=== PATIENT | male | born 2000 | race Two or more races ===

== ENCOUNTER 2019-06-05 15:54 | Emergency (ER) | payer MEDICAID ==
[~2019-06-05] VITALS: Ht 170.2 cm; Wt 108.9 kg
[2019-06-05 16:30] LABS: Basophils # (auto) 0.1 uL; Basophils % (auto) 0.6 % (0.0-2.0); Eosinophils # (auto) 0.9 uL; Eosinophils % (auto) 5.7 % (0.0-7.0); Hematocrit 46.5 % (41.0-53.0); Lymphocytes # (auto) 4.9 uL; Lymphocytes % (auto) 32.6 % (10.0-50.0); Mean Corpuscular Hemoglobin 28.6 pg (28.0-32.0); Mean Corpuscular Hgb Conc. 34.5 g/dL (32.0-36.0); Mean Corpuscular Volume 82.8 fL (80.0-100.0); Monocytes # (auto) 0.8 uL; Neutrophils # (auto) 8.5 uL; Neutrophils % (auto) 56.1 % (37.0-80.0); Platelet Count (auto) 407 10^3/uL (140-450); Red Blood Cells 5.61 10^6/uL (4.5-5.90); Red Cell Distribution Width 13.8 % (11.8-14.3); White Blood Cell 15.1 10^3/uL (4.4-10.8)
[2019-06-05 20:06] VITALS: BP 145/88
== END 2019-06-05 21:35 | disposition home or self-care (01) ==
LOC: ER 15:58
DX: R04.0 Epistaxis (principal); E86.0 Dehydration; N39.0 Urinary tract infection, site not specified; R03.0 Elevated blood-pressure reading, without diagnosis of hypertension
CPT/HCPCS: 36415; 81002; 82962; 85025

== ENCOUNTER 2020-04-28 11:05 | Emergency (ER) | payer OTHER, MEDICAID ==
[~2020-04-28] VITALS: Ht 172.7 cm; Wt 104.3 kg
[2020-04-28 12:00] VITALS: BP 156/103
== END 2020-04-28 12:58 | disposition home or self-care (01) ==
LOC: ER 11:05
DX: M25.512 Pain in left shoulder (principal); M54.2 Cervicalgia; V89.2XXA Person injured in unspecified motor-vehicle accident, traffic, initial encounter; Y93.I9 Activity, other involving external motion; Y92.481 Parking lot as the place of occurrence of the external cause; Y99.8 Other external cause status
CPT/HCPCS: 72040; 73030

== ENCOUNTER 2022-04-10 09:51 | Inpatient (IN) | payer OTHER, MEDICAID ==
[~2022-04-10] VITALS: Ht 175.3 cm; Wt 86.7 kg
[2022-04-10] MEDS ORDERED: ALUM & MAG HYDROX-SIMETH LIQ(MAALOX) 30 ML PO ONE (10:30)
[2022-04-10 10:40] LABS: Red Cell Distribution Width 13.2 % (11.8-14.3)
[2022-04-10 10:42] LABS: Hematocrit 43.6 % (41.0-53.0); Hemoglobin 14.9 g/dL (13.5-17.5); Mean Corpuscular Hemoglobin 28.3 pg (28.0-32.0); Mean Corpuscular Hgb Conc. 34.3 g/dL (32.0-36.0); Mean Corpuscular Volume 82.6 fL (80.0-100.0); Red Blood Cells 5.27 10^6/uL (4.5-5.90); White Blood Cell 27.1 10^3/uL (4.4-10.8)
[2022-04-10 10:55] LABS: Basophils % (manual) 0 (0.0-2.0); Blast Cells 0; Metamyelocytes % 0; Myelocytes % 0; Promyelocytes % 0; Reactive Lymphocytes 0
[2022-04-10] MEDS ORDERED: SODIUM CHLORIDE 0.9% 1,000 ML IV ONE (11:00)
[2022-04-10 11:01] LABS: Albumin 2.7 g/dL (3.4-5.0); BUN/Creatinine Ratio 16.5; Calcium 8.6 mg/dL (8.5-10.1)
[2022-04-10 11:04] LABS: Bilirubin, Total 0.8 mg/dL (0.2-1.0); Total Protein 8.6 g/dL (6.4-8.2)
[2022-04-10 12:50] LABS: Amphetamine Screen, Urine NEGATIVE (NEGATIVE); Barbiturate Scree,Urine NEGATIVE (NEGATIVE); Benzodiazephine Screen, Urine NEGATIVE (NEGATIVE); Cannabinoid Screen, Urine NEGATIVE (NEGATIVE); Cocaine Screen, Urine NEGATIVE (NEGATIVE); Opiate Scree,Urine NEGATIVE (NEGATIVE); Phencyclidine Screen, Urine NEGATIVE (NEGATIVE)
[2022-04-10 12:56] LABS: Urine Bacteria NONE SEEN /hpf (None Seen); Urine Blood Negative /uL (Negative); Urine Hyaline Cast FEW /lpf (0 - 2); Urine Specific Gravity 1.016 (1.001-1.035); Urine WBC 5 /hpf (0 - 3)
[2022-04-10 13:02] LABS: Band Neutrophils % (manual) 22; Eosinophils % (manual) 1 (0-7); Lymphocytes % (manual) 9 (10.0-50.0); Monocytes % (manual) 11 (0-12)
[2022-04-10] MEDS ORDERED: ACETAMINOPHEN 325 MG TAB PO PRN (23:15)
[2022-04-10] MEDS ORDERED: TEMAZEPAM 15 MG CAP PO PRN (23:15)
[2022-04-10] MEDS ORDERED: NITROGLYCERIN 0.4 MG SL TAB SL PRN (23:15)
[2022-04-10] MEDS ORDERED: MORPHINE SULFATE INJ 2 MG/ml SYRG IV PRN (23:15)
[2022-04-10] MEDS ORDERED: cefTRIAXone 1GM/50ML D5W 50 ML IV ONE (23:15)
[2022-04-10] MEDS ORDERED: metroNIDAZOLE 500MG/100ML 100 ML IV ONE (23:15)
[2022-04-10] MEDS ORDERED: ALBUMIN 25% 100 ML IV ONE (23:15)
[2022-04-11] VITALS (7 sets, daily range): BP systolic 121–131; BP diastolic 55–74
[2022-04-11] MEDS: POTASSIUM CHL 20MEQ/100ML 100 ML IV SCH ×2 (00:23→01:15)
[2022-04-11] MEDS: SODIUM CHLORIDE 0.9% 1,000 ML IV SCH ×2 (00:24→15:55)
[2022-04-11] MEDS: metroNIDAZOLE 500MG/100ML 100 ML IV SCH ×3 (05:35→21:19)
[2022-04-11 07:06] LABS: Hematocrit 39.1 % (41.0-53.0); Hemoglobin 13.5 g/dL (13.5-17.5); Mean Corpuscular Hemoglobin 28.6 pg (28.0-32.0); Mean Corpuscular Hgb Conc. 34.6 g/dL (32.0-36.0); Mean Corpuscular Volume 82.7 fL (80.0-100.0); Red Blood Cells 4.72 10^6/uL (4.5-5.90); Red Cell Distribution Width 13.5 % (11.8-14.3); White Blood Cell 23.8 10^3/uL (4.4-10.8)
[2022-04-11 07:15] LABS: Basophils % (manual) 0 (0.0-2.0); Blast Cells 0; Promyelocytes % 0; Reactive Lymphocytes 0
[2022-04-11 07:17] LABS: Albumin 2.6 g/dL (3.4-5.0); Calcium 8.5 mg/dL (8.5-10.1); Potassium 3.4 mmol/L (3.5-5.1)
[2022-04-11 07:23] LABS: BUN/Creatinine Ratio 21.8; Bilirubin, Total 0.8 mg/dL (0.2-1.0); Total Protein 7.5 g/dL (6.4-8.2)
[2022-04-11 07:48] LABS: Band Neutrophils % (manual) 12; Eosinophils % (manual) 5 (0-7); Lymphocytes % (manual) 9 (10.0-50.0); Metamyelocytes % 1; Monocytes % (manual) 5 (0-12); Myelocytes % 2
[2022-04-11] MEDS: ENOXAPARIN SOD 40 MG/0.4 ML SYRINGE SC SCH (10:00)
[2022-04-11] MEDS: FAMOTIDINE (10MG/ML) 2ML VL IV SCH ×2 (10:13→22:22)
[2022-04-11] MEDS: HYDROcodone-ACET 5/325MG TAB PO PRN (10:30)
[2022-04-11] MEDS ORDERED: POTASSIUM CHLORIDE 20 MEQ, LIDOCAINE 1% (LOCAL ANESTH.) 2 ML in SODIUM CHL 0.9% 100 ML IV ONE (11:00)
[2022-04-11] MEDS: ONDANSETRON HCL 4 MG/2 ML VIAL IV PRN (11:05)
[2022-04-11] MEDS: MORPHINE SULFATE INJ 2 MG/ml SYRG IV PRN (11:06)
[2022-04-11] MEDS ORDERED: VANCOMYCIN HCL 125MG/5ML ORAL SOL PO ONE (12:00)
[2022-04-11] MEDS: VANCOMYCIN HCL 125MG/5ML ORAL SOL PO SCH (17:04)
[2022-04-11] MEDS: cefTRIAXone 1GM/50ML D5W 50 ML IV SCH (22:22)
[2022-04-12] MEDS: VANCOMYCIN HCL 125MG/5ML ORAL SOL PO SCH ×4 (00:28→18:12)
[2022-04-12 05:00] VITALS: BP 116/66
[2022-04-12] MEDS: metroNIDAZOLE 500MG/100ML 100 ML IV SCH ×3 (06:21→21:16)
[2022-04-12 09:02] VITALS: BP 129/75
[2022-04-12] MEDS: FAMOTIDINE (10MG/ML) 2ML VL IV SCH ×2 (09:52→22:31)
[2022-04-12] MEDS: ENOXAPARIN SOD 40 MG/0.4 ML SYRINGE SC SCH (09:57)
[2022-04-12 13:19] VITALS: BP 124/67
[2022-04-12] MEDS: SODIUM CHLORIDE 0.9% 1,000 ML IV SCH (14:24)
[2022-04-12 16:51] VITALS: BP 150/63
[2022-04-12 20:14] LABS: Hematocrit 42.1 % (41.0-53.0); Hemoglobin 13.9 g/dL (13.5-17.5); Mean Corpuscular Hemoglobin 27.7 pg (28.0-32.0); Mean Corpuscular Hgb Conc. 33.1 g/dL (32.0-36.0); Mean Corpuscular Volume 83.6 fL (80.0-100.0); Red Blood Cells 5.03 10^6/uL (4.5-5.90); Red Cell Distribution Width 13.6 % (11.8-14.3)
[2022-04-12 20:16] LABS: Basophils % (manual) 0 (0.0-2.0); Blast Cells 0; Metamyelocytes % 0; Myelocytes % 0; Promyelocytes % 0; Reactive Lymphocytes 0
[2022-04-12 21:05] LABS: Band Neutrophils % (manual) 7; Eosinophils % (manual) 2 (0-7); Lymphocytes % (manual) 10 (10.0-50.0); Monocytes % (manual) 5 (0-12)
[2022-04-12 22:00] VITALS: BP 119/67
[2022-04-12] MEDS: cefTRIAXone 1GM/50ML D5W 50 ML IV SCH (22:32)
[2022-04-13] MEDS: VANCOMYCIN HCL 125MG/5ML ORAL SOL PO SCH ×4 (00:10→18:42)
[2022-04-13] MEDS: SODIUM CHLORIDE 0.9% 1,000 ML IV SCH ×2 (01:15→18:43)
[2022-04-13 04:59] LABS: Hematocrit 40.8 % (41.0-53.0); Hemoglobin 13.8 g/dL (13.5-17.5); Mean Corpuscular Hemoglobin 28.2 pg (28.0-32.0); Mean Corpuscular Hgb Conc. 33.8 g/dL (32.0-36.0); Mean Corpuscular Volume 83.6 fL (80.0-100.0); Red Blood Cells 4.88 10^6/uL (4.5-5.90); Red Cell Distribution Width 13.4 % (11.8-14.3); White Blood Cell 24.5 10^3/uL (4.4-10.8)
[2022-04-13 05:00] VITALS: BP 108/63
[2022-04-13 05:05] LABS: Basophils % (manual) 0 (0.0-2.0); Blast Cells 0; Metamyelocytes % 0; Promyelocytes % 0; Reactive Lymphocytes 0
[2022-04-13 05:06] LABS: Albumin 2.5 g/dL (3.4-5.0); Calcium 8.3 mg/dL (8.5-10.1); Potassium 3.4 mmol/L (3.5-5.1)
[2022-04-13 05:10] LABS: BUN/Creatinine Ratio 10.9; Bilirubin, Total 0.6 mg/dL (0.2-1.0); Total Protein 6.9 g/dL (6.4-8.2)
[2022-04-13] MEDS: metroNIDAZOLE 500MG/100ML 100 ML IV SCH ×3 (06:02→22:43)
[2022-04-13 06:54] LABS: Band Neutrophils % (manual) 9; Eosinophils % (manual) 2 (0-7); Lymphocytes % (manual) 9 (10.0-50.0); Monocytes % (manual) 4 (0-12); Myelocytes % 5
[2022-04-13 08:48] VITALS: BP 123/72
[2022-04-13] MEDS: FAMOTIDINE (10MG/ML) 2ML VL IV SCH ×2 (09:11→22:42)
[2022-04-13] MEDS: ENOXAPARIN SOD 40 MG/0.4 ML SYRINGE SC SCH (09:12)
[2022-04-13] MEDS ORDERED: POTASSIUM CHLORIDE 20 MEQ, LIDOCAINE 1% (LOCAL ANESTH.) 2 ML in SODIUM CHL 0.9% 100 ML IV ONE (10:45)
[2022-04-13 13:06] VITALS: BP 131/75
[2022-04-13 14:07] LABS: INR 1.34 (0.9-1.15); Partial Thromboplastin Time 27.3 sec (24.6-33.4)
[2022-04-13] MEDS: HYDROcodone-ACET 5/325MG TAB PO PRN ×2 (14:29→18:44)
[2022-04-13 17:02] VITALS: BP 116/54
[2022-04-13 22:00] VITALS: BP 110/62
[2022-04-13] MEDS: cefTRIAXone 1GM/50ML D5W 50 ML IV SCH (22:59)
[2022-04-14] VITALS (20 sets, daily range): BP systolic 111–123; BP diastolic 49–80
[2022-04-14] MEDS: VANCOMYCIN HCL 125MG/5ML ORAL SOL PO SCH ×2 (00:34→06:17)
[2022-04-14] MEDS: HYDROcodone-ACET 5/325MG TAB PO PRN (00:35)
[2022-04-14] MEDS: metroNIDAZOLE 500MG/100ML 100 ML IV SCH (06:17)
[2022-04-14 07:15] LABS: Hemoglobin 13.8 g/dL (13.5-17.5); Mean Corpuscular Hemoglobin 27.3 pg (28.0-32.0); Mean Corpuscular Hgb Conc. 32.8 g/dL (32.0-36.0)
[2022-04-14 07:17] LABS: Hematocrit 42.1 % (41.0-53.0); Mean Corpuscular Volume 83.3 fL (80.0-100.0); Red Blood Cells 5.05 10^6/uL (4.5-5.90); Red Cell Distribution Width 13.6 % (11.8-14.3); White Blood Cell 24.9 10^3/uL (4.4-10.8)
[2022-04-14 07:28] LABS: INR 1.44 (0.9-1.15); Partial Thromboplastin Time 28.2 sec (24.6-33.4)
[2022-04-14 07:31] LABS: BUN/Creatinine Ratio 12.5; Calcium 8.7 mg/dL (8.5-10.1); Potassium 3.3 mmol/L (3.5-5.1)
[2022-04-14 07:40] LABS: Basophils % (manual) 0 (0.0-2.0); Blast Cells 0; Eosinophils % (manual) 0 (0-7); Metamyelocytes % 0; Promyelocytes % 0; Reactive Lymphocytes 0
[2022-04-14] MEDS: FAMOTIDINE (10MG/ML) 2ML VL IV SCH ×2 (08:28→21:12)
[2022-04-14] MEDS: ONDANSETRON HCL 4 MG/2 ML VIAL IV PRN (08:30)
[2022-04-14] MEDS: MORPHINE SULFATE INJ 2 MG/ml SYRG IV PRN ×2 (08:30→19:48)
[2022-04-14 09:34] LABS: Band Neutrophils % (manual) 4; Lymphocytes % (manual) 17 (10.0-50.0); Monocytes % (manual) 8 (0-12); Myelocytes % 1
[2022-04-14] MEDS ORDERED: SOD CHL 0.9%/ KCL 20MEQ 1,000 ML IV SCH (10:15)
[2022-04-14] MEDS ORDERED: MEPERIDINE HCL (25 MG/ML) 1ML VIAL ONE (10:22)
[2022-04-14] MEDS ORDERED: MIDAZOLAM HCL 2MG/2ML 2ml VIAL (1mg/ml) ONE (10:22)
[2022-04-14] MEDS ORDERED: fentaNYL CITRATE 100 MCG/2 ML VL ONE ×3 (10:22→12:30)
[2022-04-14] MEDS ORDERED: ROCURONIUM 10MG/ML 10ML VIAL IV ONE (10:22)
[2022-04-14] MEDS ORDERED: NEOSTIGMINE 1 MG/ML INJ (10mg/10ML VIAL) ONE (10:23)
[2022-04-14] MEDS ORDERED: SODIUM CHLORIDE LOCK 10 ML ONE (10:23)
[2022-04-14] MEDS ORDERED: DexAMETHasone SOD PHOS 10MG/1ML VIAL INJ ONE (10:23)
[2022-04-14] MEDS ORDERED: GLYCOPYRROLATE 0.2 MG/ML 1ML VIAL ONE (10:23)
[2022-04-14] MEDS ORDERED: ONDANSETRON HCL 4 MG/2 ML VIAL ONE (10:23)
[2022-04-14] MEDS ORDERED: HYDROmorphone HCL 2 MG/ML VL/or syr IV PRN (11:00)
[2022-04-14] MEDS ORDERED: MORPHINE SULFATE 4 MG/ML SYR/VIAL IV PRN (11:00)
[2022-04-14] MEDS ORDERED: METOCLOPRAMIDE HCL 5MG/ml INJ 2ml VIAL IV PRN (11:00)
[2022-04-14] MEDS ORDERED: HYDROmorphone HCL 2 MG/ML VL/or syr ONE (13:50)
[2022-04-14] MEDS: HYDROmorphone HCL 2 MG/ML VL/or syr IV PRN ×4 (13:53→17:10)
[2022-04-14] MEDS: SOD CHL 0.9%/ KCL 20MEQ 1,000 ML IV SCH (14:00)
[2022-04-14] MEDS: PIPERACILLIN-TAZOB 3.375GM 100 ML IV SCH ×2 (15:06→21:12)
[2022-04-14] MEDS ORDERED: SODIUM CHLORIDE 0.9% 1,000 ML IV ONE (16:00)
[2022-04-14] MEDS ORDERED: ACETAMINOPHEN IV 100 ML IV ONE (16:05)
[2022-04-14] MEDS ORDERED: ACETAMINOPHEN IV 1000 MG/100ML (10MG/ML) IV ONE (16:15)
[2022-04-15] VITALS (32 sets, daily range): BP systolic 108–134; BP diastolic 67–80
[2022-04-15] MEDS: MORPHINE SULFATE INJ 2 MG/ml SYRG IV PRN ×3 (00:08→09:32)
[2022-04-15] MEDS: SOD CHL 0.9%/ KCL 20MEQ 1,000 ML IV SCH ×2 (01:30→09:54)
[2022-04-15] MEDS: PIPERACILLIN-TAZOB 3.375GM 100 ML IV SCH ×4 (04:25→21:19)
[2022-04-15 04:56] LABS: Hematocrit 41.1 % (41.0-53.0); Hemoglobin 13.3 g/dL (13.5-17.5); Mean Corpuscular Hemoglobin 27.4 pg (28.0-32.0); Mean Corpuscular Hgb Conc. 32.4 g/dL (32.0-36.0); Mean Corpuscular Volume 84.4 fL (80.0-100.0); Red Blood Cells 4.87 10^6/uL (4.5-5.90); Red Cell Distribution Width 13.8 % (11.8-14.3)
[2022-04-15 05:01] LABS: White Blood Cell 31.3 10^3/uL (4.4-10.8)
[2022-04-15 05:02] LABS: Basophils % (manual) 0 (0.0-2.0); Blast Cells 0; Eosinophils % (manual) 0 (0-7); Metamyelocytes % 0; Myelocytes % 0; Promyelocytes % 0; Reactive Lymphocytes 0
[2022-04-15 05:09] LABS: Albumin 1.9 g/dL (3.4-5.0); Calcium 7.7 mg/dL (8.5-10.1); Potassium 4.4 mmol/L (3.5-5.1)
[2022-04-15 05:12] LABS: Bilirubin, Total 0.6 mg/dL (0.2-1.0); Total Protein 5.8 g/dL (6.4-8.2)
[2022-04-15 06:34] LABS: Band Neutrophils % (manual) 8; Lymphocytes % (manual) 6 (10.0-50.0); Monocytes % (manual) 4 (0-12)
[2022-04-15] MEDS: FAMOTIDINE (10MG/ML) 2ML VL IV SCH ×2 (10:07→21:19)
[2022-04-15] MEDS ORDERED: CLINIMIX PER PHARMACY 0 ML IV SCH (10:15)
[2022-04-15] MEDS: LACTATED RINGER'S 1,000 ML IV SCH ×2 (10:15→23:33)
[2022-04-15] MEDS: HYDROmorphone HCL 2 MG/ML VL/or syr IV PRN ×3 (12:03→21:25)
[2022-04-15 12:15] LABS: Magnesium 2.1 mg/dL (1.6-2.6)
[2022-04-15 12:18] LABS: Phosphorus 3.4 mg/dL (2.5-4.90)
[2022-04-15] MEDS ORDERED: TPN PER PHARMACY 0 ML IV SCH (18:15)
[2022-04-15] MEDS ORDERED: AMINO ACID INFUSION IN D10W 1,000 ML IV NR (20:00)
[2022-04-15] MEDS: ACCU-CHEK COMFORT CURVE STRIP VI SCH (23:31)
[2022-04-15] MEDS: InsuLIN REG 1unit/0.01ml Soln (100units/ml) SC SCH (23:32)
[2022-04-16] MEDS ORDERED: DEXTROSE (50%) 50ML SYRG IV SCH
[2022-04-16] MEDS: HYDROmorphone HCL 2 MG/ML VL/or syr IV PRN ×5 (03:01→23:52)
[2022-04-16] MEDS: PIPERACILLIN-TAZOB 3.375GM 100 ML IV SCH ×4 (03:01→21:08)
[2022-04-16 05:00] VITALS: BP 141/76
[2022-04-16 05:20] LABS: Eosinophils # (auto) 0.2 10 ^3/uL (0-0.8); Mean Corpuscular Hemoglobin 27.7 pg (28.0-32.0); Mean Corpuscular Volume 83.8 fL (80.0-100.0); Red Cell Distribution Width 13.7 % (11.8-14.3)
[2022-04-16 05:25] LABS: Basophils # (auto) 0.1 10 ^3/uL (0-0.2); Basophils % (auto) 0.6 % (0.0-2.0); Eosinophils % (auto) 0.6 % (0.0-7.0); Hematocrit 35.4 % (41.0-53.0); Hemoglobin 11.7 g/dL (13.5-17.5); Lymphocytes % (auto) 7.8 % (10.0-50.0); Monocytes # (auto) 1.4 10 ^3/uL (0-1.3); Monocytes % (auto) 5.5 % (0.0-12.0); Neutrophils % (auto) 85.5 % (37.0-80.0); Red Blood Cells 4.23 10^6/uL (4.5-5.90); White Blood Cell 25.8 10^3/uL (4.4-10.8)
[2022-04-16 05:38] LABS: Albumin 1.8 g/dL (3.4-5.0); Calcium 8.1 mg/dL (8.5-10.1); Potassium 3.7 mmol/L (3.5-5.1)
[2022-04-16] MEDS: ACCU-CHEK COMFORT CURVE STRIP VI SCH ×4 (05:38→23:50)
[2022-04-16] MEDS: InsuLIN REG 1unit/0.01ml Soln (100units/ml) SC SCH ×4 (05:38→23:50)
[2022-04-16] MEDS: LACTATED RINGER'S 1,000 ML IV SCH (05:39)
[2022-04-16 05:44] LABS: BUN/Creatinine Ratio 18.4; Bilirubin, Total 0.5 mg/dL (0.2-1.0); Total Protein 5.9 g/dL (6.4-8.2)
[2022-04-16 09:00] VITALS: BP 102/70
[2022-04-16] MEDS: FAMOTIDINE (10MG/ML) 2ML VL IV SCH ×2 (09:29→21:09)
[2022-04-16] MEDS ORDERED: LACTATED RINGER'S 1,000 ML IV SCH (12:45)
[2022-04-16 12:52] VITALS: BP 123/58
[2022-04-16] MEDS: metroNIDAZOLE 500MG/100ML 100 ML IV SCH ×2 (14:35→21:44)
[2022-04-16 16:59] VITALS: BP 119/77
[2022-04-16] MEDS ORDERED: LIDOCAINE 1% (LOCAL ANESTH.) PF 5ml SDV ID ONE (17:00)
[2022-04-16] MEDS ORDERED: PPN PER PHARMACY IV NR ×18 (20:00)
[2022-04-16] MEDS: SODIUM CHLORIDE 0.9% 1,000 ML IV SCH (20:10)
[2022-04-16] MEDS: SODIUM CHLOR 0.9% PF (SALINE LOCK) 10ML VIAL/SYR IV SCH (21:09)
[2022-04-16 22:00] VITALS: BP 163/69
[2022-04-17] MEDS: PIPERACILLIN-TAZOB 3.375GM 100 ML IV SCH ×4 (02:34→21:48)
[2022-04-17] MEDS: HYDROmorphone HCL 2 MG/ML VL/or syr IV PRN ×5 (04:10→22:19)
[2022-04-17 05:00] VITALS: BP 132/76
[2022-04-17] MEDS: ACCU-CHEK COMFORT CURVE STRIP VI SCH ×3 (05:42→18:00)
[2022-04-17] MEDS: metroNIDAZOLE 500MG/100ML 100 ML IV SCH ×3 (05:42→21:30)
[2022-04-17] MEDS: InsuLIN REG 1unit/0.01ml Soln (100units/ml) SC SCH ×3 (05:43→18:00)
[2022-04-17 05:59] LABS: Eosinophils # (auto) 0.2 10 ^3/uL (0-0.8); Hemoglobin 12.3 g/dL (13.5-17.5); Lymphocytes # (auto) 2.1 10 ^3/uL (0.4-5.4); Lymphocytes % (auto) 9.3 % (10.0-50.0); Mean Corpuscular Hgb Conc. 33.7 g/dL (32.0-36.0); Monocytes % (auto) 4.5 % (0.0-12.0); Neutrophils # (auto) 19.1 10 ^3/uL (1.6-8.6); White Blood Cell 22.5 10^3/uL (4.4-10.8)
[2022-04-17 06:00] LABS: Basophils # (auto) 0.2 10 ^3/uL (0-0.2); Basophils % (auto) 0.7 % (0.0-2.0); Eosinophils % (auto) 0.8 % (0.0-7.0); Hematocrit 36.3 % (41.0-53.0); Mean Corpuscular Hemoglobin 28.2 pg (28.0-32.0); Mean Corpuscular Volume 83.7 fL (80.0-100.0); Neutrophils % (auto) 84.7 % (37.0-80.0); Red Blood Cells 4.34 10^6/uL (4.5-5.90); Red Cell Distribution Width 13.9 % (11.8-14.3)
[2022-04-17 06:23] LABS: Potassium 3.8 mmol/L (3.5-5.1)
[2022-04-17 06:30] LABS: Albumin 2.1 g/dL (3.4-5.0); BUN/Creatinine Ratio 17.5; Bilirubin, Total 0.8 mg/dL (0.2-1.0); Calcium 8.1 mg/dL (8.5-10.1); Magnesium 2.2 mg/dL (1.6-2.6); Phosphorus 3.9 mg/dL (2.5-4.90); Total Protein 6.8 g/dL (6.4-8.2)
[2022-04-17] MEDS: SODIUM CHLORIDE 0.9% 1,000 ML IV SCH ×2 (09:20→22:40)
[2022-04-17] MEDS: FAMOTIDINE (10MG/ML) 2ML VL IV SCH ×2 (09:47→21:29)
[2022-04-17] MEDS: SODIUM CHLOR 0.9% PF (SALINE LOCK) 10ML VIAL/SYR IV SCH ×2 (10:00→21:30)
[2022-04-17 13:00] VITALS: BP 141/87
[2022-04-17 16:17] VITALS: BP 116/80
[2022-04-17] MEDS ORDERED: TPN PER PHARMACY IV NR ×9 (20:00)
[2022-04-17 22:00] VITALS: BP 121/73
[2022-04-18] MEDS: InsuLIN REG 1unit/0.01ml Soln (100units/ml) SC SCH ×4 (00:41→17:49)
[2022-04-18] MEDS: ACCU-CHEK COMFORT CURVE STRIP VI SCH ×4 (00:41→17:49)
[2022-04-18] MEDS: PIPERACILLIN-TAZOB 3.375GM 100 ML IV SCH ×4 (03:00→21:54)
[2022-04-18] MEDS: HYDROmorphone HCL 2 MG/ML VL/or syr IV PRN ×4 (04:32→20:50)
[2022-04-18 05:00] VITALS: BP 112/67
[2022-04-18 05:21] LABS: Eosinophils # (auto) 0.2 10 ^3/uL (0-0.8); Hemoglobin 11.2 g/dL (13.5-17.5); Red Cell Distribution Width 13.5 % (11.8-14.3)
[2022-04-18 05:23] LABS: Basophils # (auto) 0 10 ^3/uL (0-0.2); Basophils % (auto) 0.2 % (0.0-2.0); Eosinophils % (auto) 1.4 % (0.0-7.0); Hematocrit 35.1 % (41.0-53.0); Lymphocytes # (auto) 1.8 10 ^3/uL (0.4-5.4); Lymphocytes % (auto) 10.2 % (10.0-50.0); Mean Corpuscular Hemoglobin 26.5 pg (28.0-32.0); Mean Corpuscular Volume 82.8 fL (80.0-100.0); Monocytes # (auto) 0.9 10 ^3/uL (0-1.3); Monocytes % (auto) 5.1 % (0.0-12.0); Neutrophils # (auto) 14.8 10 ^3/uL (1.6-8.6); Neutrophils % (auto) 83.1 % (37.0-80.0); Red Blood Cells 4.24 10^6/uL (4.5-5.90); White Blood Cell 17.9 10^3/uL (4.4-10.8)
[2022-04-18 06:00] LABS: Magnesium 2.4 mg/dL (1.6-2.6); Potassium 3.4 mmol/L (3.5-5.1)
[2022-04-18 06:11] LABS: BUN/Creatinine Ratio 24.4; Bilirubin, Total 0.6 mg/dL (0.2-1.0); Phosphorus 2.8 mg/dL (2.5-4.90); Total Protein 6.5 g/dL (6.4-8.2)
[2022-04-18] MEDS: metroNIDAZOLE 500MG/100ML 100 ML IV SCH (06:45)
[2022-04-18 09:00] VITALS: BP 124/73
[2022-04-18] MEDS ORDERED: SODIUM CHLORIDE 0.9% 1,000 ML IV SCH (09:45)
[2022-04-18] MEDS ORDERED: POTASSIUM CHL 20MEQ/100ML 100 ML IV ONE (09:45)
[2022-04-18] MEDS: SODIUM CHLOR 0.9% PF (SALINE LOCK) 10ML VIAL/SYR IV SCH ×2 (10:44→22:03)
[2022-04-18] MEDS: FAMOTIDINE (10MG/ML) 2ML VL IV SCH ×2 (10:44→21:54)
[2022-04-18 12:51] VITALS: BP 117/78
[2022-04-18] MEDS: SODIUM CHLORIDE 0.9% 1,000 ML IV SCH ×2 (13:52→20:50)
[2022-04-18 16:55] VITALS: BP 111/75
[2022-04-18] MEDS: HYDROcodone-ACET 5/325MG TAB PO PRN (17:25)
[2022-04-18] MEDS: ONDANSETRON HCL 4 MG/2 ML VIAL IV PRN (17:25)
[2022-04-18] MEDS ORDERED: TPN PER PHARMACY IV NR ×9 (20:00)
[2022-04-18 22:00] VITALS: BP 122/70
[2022-04-19] MEDS: ACCU-CHEK COMFORT CURVE STRIP VI SCH ×5 (00:20→23:36)
[2022-04-19] MEDS: InsuLIN REG 1unit/0.01ml Soln (100units/ml) SC SCH ×5 (00:20→23:36)
[2022-04-19] MEDS: HYDROmorphone HCL 2 MG/ML VL/or syr IV PRN ×5 (01:05→21:41)
[2022-04-19] MEDS: PIPERACILLIN-TAZOB 3.375GM 100 ML IV SCH ×4 (03:04→21:31)
[2022-04-19 05:00] VITALS: BP 121/73
[2022-04-19 05:24] LABS: Eosinophils # (auto) 0.4 10 ^3/uL (0-0.8); Lymphocytes # (auto) 2.3 10 ^3/uL (0.4-5.4); Mean Corpuscular Hemoglobin 27.4 pg (28.0-32.0); White Blood Cell 15.3 10^3/uL (4.4-10.8)
[2022-04-19 05:26] LABS: Potassium 3.8 mmol/L (3.5-5.1)
[2022-04-19 05:30] LABS: Basophils # (auto) 0.1 10 ^3/uL (0-0.2); Basophils % (auto) 0.4 % (0.0-2.0); Eosinophils % (auto) 2.6 % (0.0-7.0); Hematocrit 33.9 % (41.0-53.0); Lymphocytes % (auto) 15.3 % (10.0-50.0); Mean Corpuscular Hgb Conc. 32.6 g/dL (32.0-36.0); Mean Corpuscular Volume 84.2 fL (80.0-100.0); Monocytes # (auto) 0.9 10 ^3/uL (0-1.3); Monocytes % (auto) 5.6 % (0.0-12.0); Neutrophils # (auto) 11.7 10 ^3/uL (1.6-8.6); Neutrophils % (auto) 76.1 % (37.0-80.0); Red Blood Cells 4.02 10^6/uL (4.5-5.90); Red Cell Distribution Width 13.9 % (11.8-14.3)
[2022-04-19 05:32] LABS: BUN/Creatinine Ratio 22.4; Bilirubin, Total 0.5 mg/dL (0.2-1.0); Magnesium 2.1 mg/dL (1.6-2.6); Phosphorus 2.9 mg/dL (2.5-4.90); Total Protein 6.6 g/dL (6.4-8.2)
[2022-04-19 08:39] VITALS: BP 116/62
[2022-04-19] MEDS: SODIUM CHLOR 0.9% PF (SALINE LOCK) 10ML VIAL/SYR IV SCH ×2 (10:25→21:31)
[2022-04-19] MEDS: FAMOTIDINE (10MG/ML) 2ML VL IV SCH ×2 (10:25→21:31)
[2022-04-19] MEDS: SODIUM CHLORIDE 0.9% 1,000 ML IV SCH (12:40)
[2022-04-19 14:14] VITALS: BP 102/62
[2022-04-19 16:45] VITALS: BP 108/64
[2022-04-19] MEDS ORDERED: TPN PER PHARMACY IV NR ×10 (20:00)
[2022-04-19 22:00] VITALS: BP 122/64
[2022-04-20] MEDS: HYDROmorphone HCL 2 MG/ML VL/or syr IV PRN ×5 (02:23→21:35)
[2022-04-20] MEDS: PIPERACILLIN-TAZOB 3.375GM 100 ML IV SCH ×4 (03:00→21:23)
[2022-04-20 05:00] VITALS: BP 128/76
[2022-04-20] MEDS: SODIUM CHLORIDE 0.9% 1,000 ML IV SCH ×2 (05:20→21:24)
[2022-04-20] MEDS: InsuLIN REG 1unit/0.01ml Soln (100units/ml) SC SCH ×3 (06:30→18:30)
[2022-04-20] MEDS: ACCU-CHEK COMFORT CURVE STRIP VI SCH ×3 (06:30→18:30)
[2022-04-20 06:41] LABS: Albumin 2.4 g/dL (3.4-5.0); Calcium 8.7 mg/dL (8.5-10.1); Potassium 3.9 mmol/L (3.5-5.1)
[2022-04-20 06:44] LABS: BUN/Creatinine Ratio 26.1; Phosphorus 3.3 mg/dL (2.5-4.90)
[2022-04-20 09:19] VITALS: BP 104/62
[2022-04-20 09:51] LABS: Albumin 2.3 g/dL (3.4-5.0); Bilirubin, Direct 0.2 mg/dL (0-0.2)
[2022-04-20 09:55] LABS: Bilirubin, Total 0.4 mg/dL (0.2-1.0); Total Protein 7.2 g/dL (6.4-8.2)
[2022-04-20] MEDS: FAMOTIDINE (10MG/ML) 2ML VL IV SCH ×2 (11:00→21:23)
[2022-04-20] MEDS: SODIUM CHLOR 0.9% PF (SALINE LOCK) 10ML VIAL/SYR IV SCH ×2 (11:00→21:23)
[2022-04-20] MEDS ORDERED: GASTROGRAFIN 120 ML SOL ONE (12:00)
[2022-04-20 12:50] VITALS: BP 121/71
[2022-04-20 16:00] VITALS: BP 126/82
[2022-04-20] MEDS: HYDROcodone-ACET 5/325MG TAB PO PRN (18:26)
[2022-04-20] MEDS ORDERED: TPN PER PHARMACY IV NR ×10 (20:00)
[2022-04-20 22:00] VITALS: BP 121/81
[2022-04-21] MEDS: ACCU-CHEK COMFORT CURVE STRIP VI SCH ×5 (00:22→23:59)
[2022-04-21] MEDS: InsuLIN REG 1unit/0.01ml Soln (100units/ml) SC SCH ×5 (00:23→23:59)
[2022-04-21] MEDS: HYDROmorphone HCL 2 MG/ML VL/or syr IV PRN ×5 (02:08→20:03)
[2022-04-21] MEDS: PIPERACILLIN-TAZOB 3.375GM 100 ML IV SCH ×4 (03:12→21:30)
[2022-04-21 05:00] VITALS: BP 119/74
[2022-04-21 06:28] LABS: Potassium 3.7 mmol/L (3.5-5.1)
[2022-04-21 06:34] LABS: Albumin 2.5 g/dL (3.4-5.0); BUN/Creatinine Ratio 28.6; Bilirubin, Total 0.6 mg/dL (0.2-1.0); Calcium 8.7 mg/dL (8.5-10.1); Magnesium 2.4 mg/dL (1.6-2.6); Phosphorus 3.5 mg/dL (2.5-4.90); Total Protein 7.7 g/dL (6.4-8.2)
[2022-04-21 09:00] VITALS: BP 124/74
[2022-04-21] MEDS: FAMOTIDINE (10MG/ML) 2ML VL IV SCH ×2 (10:50→21:30)
[2022-04-21] MEDS: SODIUM CHLOR 0.9% PF (SALINE LOCK) 10ML VIAL/SYR IV SCH ×2 (10:52→21:30)
[2022-04-21 12:30] VITALS: BP 127/71
[2022-04-21] MEDS: SODIUM CHLORIDE 0.9% 1,000 ML IV SCH (15:19)
[2022-04-21 16:26] VITALS: BP 117/72
[2022-04-21] MEDS ORDERED: TPN PER PHARMACY IV NR ×9 (20:00)
[2022-04-21 22:00] VITALS: BP 99/80
[2022-04-22] MEDS: PIPERACILLIN-TAZOB 3.375GM 100 ML IV SCH ×2 (02:46→08:27)
[2022-04-22 05:00] VITALS: BP 109/60
[2022-04-22] MEDS: ACCU-CHEK COMFORT CURVE STRIP VI SCH (05:34)
[2022-04-22] MEDS: InsuLIN REG 1unit/0.01ml Soln (100units/ml) SC SCH (05:35)
[2022-04-22] MEDS: HYDROmorphone HCL 2 MG/ML VL/or syr IV PRN (05:40)
[2022-04-22 06:37] LABS: Basophils # (auto) 0 10 ^3/uL (0-0.2); Basophils % (auto) 0.4 % (0.0-2.0); Eosinophils # (auto) 0.3 10 ^3/uL (0-0.8); Hematocrit 36.5 % (41.0-53.0); Lymphocytes % (auto) 19.6 % (10.0-50.0); Mean Corpuscular Hemoglobin 27.7 pg (28.0-32.0); Mean Corpuscular Hgb Conc. 32.9 g/dL (32.0-36.0); Mean Corpuscular Volume 84.2 fL (80.0-100.0); Monocytes # (auto) 0.6 10 ^3/uL (0-1.3); Monocytes % (auto) 5.7 % (0.0-12.0); Neutrophils # (auto) 7.2 10 ^3/uL (1.6-8.6); Neutrophils % (auto) 71.3 % (37.0-80.0); Red Blood Cells 4.33 10^6/uL (4.5-5.90); Red Cell Distribution Width 13.8 % (11.8-14.3); White Blood Cell 10.1 10^3/uL (4.4-10.8)
[2022-04-22 06:48] LABS: Potassium 3.7 mmol/L (3.5-5.1)
[2022-04-22 07:10] LABS: Albumin 2.5 g/dL (3.4-5.0); BUN/Creatinine Ratio 21.1; Bilirubin, Total 0.4 mg/dL (0.2-1.0); Calcium 8.5 mg/dL (8.5-10.1); Magnesium 2.3 mg/dL (1.6-2.6); Phosphorus 3.3 mg/dL (2.5-4.90); Total Protein 7.3 g/dL (6.4-8.2)
[2022-04-22] MEDS: SODIUM CHLORIDE 0.9% 1,000 ML IV SCH (08:28)
[2022-04-22 09:00] VITALS: BP 116/74
[2022-04-22] MEDS: FAMOTIDINE (10MG/ML) 2ML VL IV SCH (10:39)
[2022-04-22] MEDS: SODIUM CHLOR 0.9% PF (SALINE LOCK) 10ML VIAL/SYR IV SCH ×2 (10:39→21:46)
[2022-04-22] MEDS: HYDROcodone-ACET 5/325MG TAB PO PRN ×3 (10:49→19:50)
[2022-04-22 13:00] VITALS: BP 113/64
[2022-04-22] MEDS: metroNIDAZOLE 500 MG TAB PO SCH ×2 (15:25→21:46)
[2022-04-22] MEDS: levoFLOXacin 500 MG TAB PO SCH (15:26)
[2022-04-22 16:47] VITALS: BP 117/71
[2022-04-22] MEDS ORDERED: TPN PER PHARMACY IV NR ×9 (20:00)
[2022-04-22 22:00] VITALS: BP 100/48
[2022-04-23 05:00] VITALS: BP 102/54
[2022-04-23] MEDS: metroNIDAZOLE 500 MG TAB PO SCH ×2 (05:35→14:25)
[2022-04-23] MEDS: SODIUM CHLOR 0.9% PF (SALINE LOCK) 10ML VIAL/SYR IV SCH (05:35)
[2022-04-23] MEDS: HYDROcodone-ACET 5/325MG TAB PO PRN (05:36)
[2022-04-23 06:01] LABS: Basophils # (auto) 0.1 10 ^3/uL (0-0.2); Basophils % (auto) 0.6 % (0.0-2.0); Eosinophils # (auto) 0.3 10 ^3/uL (0-0.8); Eosinophils % (auto) 2.7 % (0.0-7.0); Hematocrit 35.7 % (41.0-53.0); Hemoglobin 11.8 g/dL (13.5-17.5); Red Blood Cells 4.31 10^6/uL (4.5-5.90); White Blood Cell 9.8 10^3/uL (4.4-10.8)
[2022-04-23 06:02] LABS: Lymphocytes # (auto) 1.9 10 ^3/uL (0.4-5.4); Lymphocytes % (auto) 19.7 % (10.0-50.0); Mean Corpuscular Hemoglobin 27.4 pg (28.0-32.0); Mean Corpuscular Hgb Conc. 33.1 g/dL (32.0-36.0); Mean Corpuscular Volume 82.8 fL (80.0-100.0); Monocytes # (auto) 0.6 10 ^3/uL (0-1.3); Monocytes % (auto) 5.7 % (0.0-12.0); Neutrophils % (auto) 71.3 % (37.0-80.0); Red Cell Distribution Width 13.8 % (11.8-14.3)
[2022-04-23 06:11] LABS: Chloride 106 mmol/L (98-107); Sodium 139 mmol/L (136-145)
[2022-04-23 06:31] LABS: Anion Gap 9 (5-15); BUN/Creatinine Ratio 14.8; Blood Urea Nitrogen 8 mg/dL (7-18); Calcium 8.9 mg/dL (8.5-10.1); Carbon Dioxide 24 mmol/L (21-32); GFR African American 245 mL/min; GFR Non-African American 202 mL/min; Glucose 87 mg/dL (74-106)
[2022-04-23 09:00] VITALS: BP 96/56
[2022-04-23] MEDS: levoFLOXacin 500 MG TAB PO SCH (10:17)
[2022-04-23 13:00] VITALS: BP 114/70
[2022-04-23] MEDS ORDERED: MET500T PO (14:09)
[2022-04-23] MEDS ORDERED: LEVO-28 PO (14:09)
[2022-04-23] MEDS ORDERED: AMOX-277 PO (14:14)
[2022-04-23 16:49] VITALS: BP 102/61
== END 2022-04-23 18:34 | disposition home or self-care (01) | DRG 853 ==
LOC: ER 09:51 → EAST 23:01 → TELE-EAST 04-11 12:09 → TELE-CENTR 04-11 16:34 → CENTRAL 04-14 02:57 → TELE-CENTR 04-14 14:36 → ICU WEST 04-14 18:44 → DOU IN ICU 04-15 05:00 → TELE-WESTW 04-15 23:05 → WEST WING 04-18 03:41
PROVIDERS: ADMIT Nurse Practitioner Family; ATTEND Internal Medicine
PROC: 0DTJ0ZZ Resection of Appendix, Open Approach (ICD-10-PCS; principal; 2022-04-14 11:03)
DX: A41.9 Sepsis, unspecified organism (principal); K35.32 Acute appendicitis with perforation, localized peritonitis, and gangrene, without abscess; K66.1 Hemoperitoneum; E87.1 Hypo-osmolality and hyponatremia; N39.0 Urinary tract infection, site not specified; K52.9 Noninfective gastroenteritis and colitis, unspecified; D75.839 Thrombocytosis, unspecified; E87.6 Hypokalemia; E88.09 Other disorders of plasma-protein metabolism, not elsewhere classified; Z20.822 Contact with and (suspected) exposure to COVID-19; D64.9 Anemia, unspecified; R73.9 Hyperglycemia, unspecified
CPT/HCPCS: 36415; 36569; 71045; 74018; 74176; 74250; 76705; 80048; 80053; 80069; 80076; 80307; 81001; 82962; 83036; 83735; 84100; 84132; 84478; 84484; 85007; 85025; 85027; 85610; 85730; 86703; 87045; 87070; 87075; 87081; 87177; 87205; 87427; 87493; 93005; 96365; 96367; 97116; 97530; G0378; J0131; J0696; J1100; J1815; J2001; J2250; J2405; J2543; J3480; J3490; J7131; P9047

== ENCOUNTER 2025-06-07 21:44 | Emergency (ER) | payer MEDICAID, OTHER ==
[~2025-06-07] VITALS: Ht 175.3 cm; Wt 90.9 kg
[~2025-06-07 21:44] MED LIST: AMOX875T4 PO
[2025-06-08] MEDS: TETANUS-DIPTH-ACEL PERTUSSIS 0.5ML SYR Tdap IM ONE (01:11)
[2025-06-08] MEDS ORDERED: AUG875T PO (01:12)
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
[2025-06-08 01:18] VITALS: BP 133/88; PULSE 82; RESP 20; TEMP 98.7; O2SAT 95
== END 2025-06-08 01:19 | disposition home or self-care (01) ==
LOC: ER 21:44
DX: S01.511A Laceration without foreign body of lip, initial encounter (principal); Z79.899 Other long term (current) drug therapy; X58.XXXA Exposure to other specified factors, initial encounter; Y93.89 Activity, other specified; Y92.89 Other specified places as the place of occurrence of the external cause; Y99.8 Other external cause status
CPT/HCPCS: 12013; 90471; 90715